=== PATIENT | female | born 1980 | race Caucasian/White ===

== ENCOUNTER → 2021-02-22 | Outpatient (CLI) | payer OTHER ==
[~2021-02-22] MED LIST: Percocet 5-3251 EACH PO; Verotin-Gr Cap1 EACH PO
[2021-02-23 14:10] LABS: HPV 16 Negative (Negative); HPV 18 Negative (Negative); HPV OTHER HR TYPES Negative (Negative)
== END | disposition home or self-care (01) ==
LOC: LAB SHORT 13:55 → LAB 13:55
PROVIDERS: Nurse Practitioner
DX: Z12.4 Encounter for screening for malignant neoplasm of cervix (principal); R87.810 Cervical high risk human papillomavirus (HPV) DNA test positive
CPT/HCPCS: 87624; G0123

== ENCOUNTER → 2021-08-01 | Outpatient (CLI) | payer OTHER ==
[2021-08-02 19:07] LABS: CORONAVIRUS (COVID19) CSH-NRL Positive (Negative)
== END | disposition home or self-care (01) ==
LOC: LAB 11:20 → LAB SHORT 11:20
PROVIDERS: Family Medicine
DX: U07.1 COVID-19 (principal)
CPT/HCPCS: U0003

== ENCOUNTER → 2025-03-11 | Outpatient (CLI) | payer OTHER ==
[2025-03-11 08:53] LABS: BASOPHILS ABSOLUTE AUTO 0.05 K/mm3 (0.00-0.23); BASOPHILS PERCENT AUTO 1 % (0-2); EOSINOPHILS ABSOLUTE AUTO 0.19 K/mm3 (0.00-0.68); EOSINOPHILS PERCENT AUTO 4 % (0-6); Hematocrit 35.6 % (33.0-51.0); Hemoglobin 10.4 g/dL (11.5-16.0); IMMATURE GRAN ABSOLUTE AUTO 0.01 K/mm3 (0.00-0.10); IMMATURE GRAN PERCENT AUTO 0 % (0-1); LYMPHOCYTES ABSOLUTE AUTO 1.71 K/mm3 (0.84-5.20); LYMPHOCYTES PERCENT AUTO 33 % (21-46); MONOCYTES ABSOLUTE AUTO 0.47 K/mm3 (0.16-1.47); MONOCYTES PERCENT AUTO 9 % (4-13); Mean Corpuscular HGB 20.6 pg (26.0-34.0); Mean Corpuscular HGB Conc 29.2 g/dL (31.5-36.5); Mean Corpuscular Volume 71 fL (80-100); Mean Platelet Volume 9.9 fL (9.1-12.4); NEUTROPHILS ABSOLUTE AUTO 2.76 K/mm3 (1.96-9.15); NEUTROPHILS PERCENT AUTO 53 % (41-73); Platelet Count 344 K/mm3 (150-400); RDW Coefficient Variation 20.2 % (11.7-14.2); Red Blood Cell Count 5.05 M/mm3 (3.80-5.20); White Blood Cell Count 5.19 K/mm3 (4.00-11.30)
[2025-03-11 09:02] LABS: Albumin, Blood 3.9 g/dL (3.4-5.0); Albumin/Globulin Ratio 1.1 (0.8-1.8); Bilirubin, Total 0.4 mg/dL (0.1-1.0); Bun/Creatinine Ratio 14.9 (12.0-20.0); Calcium, Blood 9.3 mg/dL (8.5-10.1); Creatinine, Blood 0.94 mg/dL (0.40-1.00); Globulin, Blood 3.5 g/dL (2.2-4.0); Potassium, Blood 3.7 mmol/L (3.5-5.5); Total Protein, Blood 7.4 g/dL (6.4-8.2)
== END ==
LOC: LAB 08:47 → LAB SHORT 08:47
PROVIDERS: Internal Medicine
DX: R06.00 Dyspnea, unspecified (principal)
CPT/HCPCS: 80053; 83880; 85025; 85379